=== PATIENT | male | born 1995 | race Caucasian/White ===

== ENCOUNTER 2017-11-23 23:25 | Emergency (ER) | payer MEDICAID ==
[~2017-11-23] VITALS: Ht 170.2 cm; Wt 104.9 kg
[2017-11-24] MEDS ORDERED: ONDANSETRON HCL 4MG/2ML VIAL IV STA (02:00)
[2017-11-24] MEDS ORDERED: MAGNESIUM/ALUMINUM HYDROXIDE/SIMETHICONE 30ML UDC PO STA (02:00)
[2017-11-24] MEDS ORDERED: FAMOTIDINE 20MG/2ML VIAL IV STA (02:00)
[2017-11-24] MEDS ORDERED: DICYCLOMINE 10 MG/5 ML ORAL SYR PO STA (02:00)
[2017-11-24] MEDS ORDERED: VISCOUS LIDOCAINE 2% 15 ML UDC PO STA (02:00)
[2017-11-24] MEDS ORDERED: SODIUM CHLORIDE 0.9% 1,000 ML IV ONE (02:00)
[2017-11-24] MEDS ORDERED: MORPHINE SULFATE 4 MG/ML CPJ (NOT FOR IM USE) IV STA (02:00)
[2017-11-24 02:20] LABS: CLARITY URINE CLEAR (CLEAR); COLOR URINE DARK YELLOW (YELLOW); KETONES URINE 2+ (NEGATIVE); LEUKOCYTE ESTERASE URINE TRACE (NEGATIVE); NITRITE URINE NEGATIVE (NEGATIVE); OCCULT BLOOD URINE NEGATIVE (NEGATIVE); PROTEIN URINE 2+ (NEGATIVE); SPECIFIC GRAVITY URINE 1.038 (1.005-1.030)
[2017-11-24 02:29] LABS: BASOPHILS % 0.7 % (0.0-2.0); HEMATOCRIT. 51.5 % (42.0-52.0); HEMOGLOBIN. 17.8 g/dL (14.0-18.0); LYMPHOCYTES % 24.9 % (20.0-50.0); MEAN CORPUSCULAR HEMOGLOBIN 31.2 pg (28.0-32.0); MEAN CORPUSCULAR VOLUME 90.4 fL (80.0-94.0); MEAN PLATELET VOLUME 9.2 fl (7.4-10.4); MONOCYTES % 11.8 % (2.0-8.0); NEUTROPHILS % 62.6 % (40.0-76.0); PLATELET 259 x1000/uL (130-400); RED CELL DISTRIBUTION WIDTH 13.8 % (11.6-14.6)
[2017-11-24 02:35] VITALS: BP 143/92
[2017-11-24 02:35] LABS: PROTHROMBIN TIME 10.5 sec (9.1-11.1)
[2017-11-24 02:37] LABS: CHLORIDE 101 mEq/L (98-107)
== END 2017-11-24 04:11 | disposition home or self-care (01) ==
LOC: ER 23:25
DX: R10.9 Unspecified abdominal pain (principal); J45.909 Unspecified asthma, uncomplicated
CPT/HCPCS: 36415; 80053; 81003; 83690; 85025; 85610; 96361; 96374; 96375; 99284; J2270; J2405; J3490; J7030; Z7610